=== PATIENT | male | born 1955 | race Caucasian/White ===

== ENCOUNTER 2016-07-19 16:57 | Emergency (ER) | payer BC ==
[~2016-07-19] VITALS: Ht 177.8 cm; Wt 114.4 kg
[~2016-07-19 16:57] MED LIST: PRLSR20 PO
[2016-07-19 17:00] VITALS: TEMP 36.6; Ht 177.8 cm; Wt 114.4 kg
--- NOTE | 2016-07-19 17:59 | EMERGENCY ROOM VISIT NOTE ---
History First contact with patient: 17:09 Chief Complaint: PAIN (GENERALIZED) Stated Complaint: PAIN IN BELLY BACK AND SIDES- WORK RELATED History of Present Illness The patient is a 60 year old male who presents to the Emergency Room with complaints of back and abdominal pain. The patient states he has had pain for the last 6 weeks but it has been worse over the last month or so. The patient reports a sensation of bloating in his abdomen. He states that he also has intermittent sharp pain in the bilateral flanks. The pain is worse with movement but he states the pain can come without movement. He states the pain is an 8/10 when it occurs. The patient has been constipated and saw his family doctor who put him on stool softeners. He states he has had mild improvement but still notices bloating to the point he cannot button his pants. He states the pain does not seem to be in the midline of the back but is the bilateral flanks. He denies any chest pain or trouble breathing. He denies any fevers, chills, earache, sore throat or cough. He denies any urinary symptoms. He denies any numbness, tingling or weakness in the upper or lower extremities. Review of Systems A 10 system review of systems was completed with positives and pertinent negatives listed in the HPI. Past Medical/Surgical History none Social History Smoking Status: Never Smoker Housing Status: lives with family Occupation Status: employed Current/Historical Medications Scheduled Docusate Sodium (Docusate Sodium), 1 CAP PO BID Polyethylene Glycol 3350 (Miralax), 17 GM PO BID Allergies Coded Allergies: No Known Allergies (Verified , 07/19/16) Uncoded Allergies: NKA (Allergy, Unknown, 11/25/14) No Known Allergies Physical Exam Vital Signs Date Time Temp Pulse Resp B/P Pulse Ox O2 Delivery O2 Flow Rate FiO2 07/19/16 20:35 55 16 120/81 94 Room Air 07/19/16 19:35 49 16 119/78 97 Room Air 07/19/16 17:00 36.6 54 18 133/88 98 Room Air Physical Exam VITALS: Vitals are noted on the nurse's note and reviewed by myself. Vital signs stable. The patient is afebrile. He is not tachycardic, tachypneic or hypoxic. GENERAL: This is a 60-year-old male, in no acute distress, nondiaphoretic, well- developed well-nourished. SKIN: The skin was without rashes, erythema, edema, or bruising. There is no tenting of the skin. Capillary reflex less than 2 seconds. HEAD: Normocephalic atraumatic. EARS: External auditory canals clear, tympanic membranes pearly gutierrez without erythema or effusion bilaterally. EYES: Pupils equal round and reactive to light and accommodation. Conjunctivae without injection, sclerae without icterus. Extraocular movements intact. NOSE: Patent, turbinates without inflammation or discharge. MOUTH: Mucous membranes moist. Tonsils are not enlarged. Pharynx without erythema or exudate. Uvula midline. Airway patent. Tongue does not deviate. NECK: Supple without nuchal rigidity. No JVD. HEART: Regular rate and rhythm without murmurs gallops or rubs. LUNGS: Clear to auscultation bilaterally without wheezes, rales or rhonchi. No retractions or accessory muscle use. ABDOMEN: Positive bowel sounds x 4. Soft, bloated, minimal lower abdominal tenderness, without masses or organomegaly. MUSCULOSKELETAL: No muscle atrophy, erythema, or edema noted. Full range of motion in all extremities. There is no midline spine tenderness. Normal gait. Strength 5/5 throughout. NEURO: Patient was alert and oriented to person place and time. No focal neurological deficits. Medical Decision & Procedures ER Provider Diagnostic Interpretation: ADDENDUM Addendum: There is a left/right error in the body the report. The 3 mm nonobstructing renal calculus is in the left kidney. Electronically signed by: Alen Wu M.D. 07/19/2016 7:30 PM Dictated Date/Time: 07/19/2016 7:[address] ABD/PELVIS IV CONTRAST ONLY CLINICAL HISTORY: Abdominal pain and bloating. COMPARISON STUDY: None. TECHNIQUE: Following the IV administration of 90 mL of Optiray-320, CT scan of the abdomen and pelvis was performed from the lung bases to the proximal femurs. Images are reviewed in the axial, sagittal, and coronal planes. IV contrast was administered without complication. CT DOSE: 1356.89 mGy.cm FINDINGS: Lower chest: There are mild bibasal atelectatic changes. Liver: The contrast-enhanced liver is normal in size, contour, and attenuation. There is no intrahepatic biliary ductal dilatation. The hepatic veins and portal veins are patent. Gallbladder: Unremarkable. Spleen: Normal in size and attenuation. Pancreas: Unremarkable. Adrenal glands: Unremarkable. Kidneys: No renal masses are visualized. There is no hydronephrosis. There is a nonobstructing 3 mm right renal calculus. Bowel: There are no transition zones indicate bowel obstruction. The appendix appears normal. There is colonic diverticulosis. There is no acute peridiverticular inflammatory change. Peritoneum: There is no intraperitoneal free air or abdominal ascites. There is very minimal infiltration of the central mesentery. Vasculature: The abdominal aorta is normal in course and caliber. Adenopathy: None. Pelvic viscera: The bladder, and pelvic viscera are unremarkable. Skeletal structures: No destructive osseous lesions are seen. IMPRESSION: 1. No evidence of bowel obstruction. No evidence of free air 2. Nonobstructing 3 mm left renal calculus 3. Diverticulosis. No evidence of acute diverticulitis 4. Normal appendix 5. No ascites CT LUMBAR SPINE WITH CT DOSE: CLINICAL HISTORY: Severe back pain TECHNIQUE: The patient was scanned following administration of 90 cc of Optiray 320. Sagittal and coronal reformatted imaging was performed. COMPARISON STUDY: None. FINDINGS: No acute fractures or subluxations are visualized. No destructive lesions are evident. There are mild multilevel degenerative changes. There is no significant spinal stenosis. There is a 3 mm nonobstructing left renal calculus. IMPRESSION: 1. No acute fractures or subluxations identified 2. Mild multilevel degenerative changes. No significant spinal stenosis 3. Nonobstructing 3 mm left renal calculus CT THORACIC SPINE WITH CT DOSE: CLINICAL HISTORY: Severe back pain TECHNIQUE: The patient was scanned following the administration of 90 cc of Optiray 320. Helical images were acquired in transverse plane. Sagittal and coronal reformatted images were acquired. COMPARISON STUDY: None. FINDINGS: No acute fractures or subluxations are visualized. There are mild to moderate multilevel degenerative changes. No destructive lesions are visualized. There are no pathologic paraspinal masses. There are dependent atelectatic changes present within the lungs. There are no significant pleural effusions. IMPRESSION: No acute findings. Multilevel general change. No fractures, subluxations, or destructive lesions are visualized Laboratory Results 07/19/16 18:13 Red Blood Count 4.66, Mean Corpuscular Volume 89.3, Mean Corpuscular Hemoglobin 31.5, Mean Corpuscular Hemoglobin Concent 35.3, Mean Platelet Volume 9.5, Neutrophils (%) (Auto) 59.1, Lymphocytes (%) (Auto) 28.4, Monocytes (%) (Auto) 8.7, Eosinophils (%) (Auto) 3.3, Basophils (%) (Auto) 0.3, Neutrophils # (Auto) 3.41, Lymphocytes # (Auto) 1.64, Monocytes # (Auto) 0.50, Eosinophils # (Auto) 0.19, Basophils # (Auto) 0.02 07/19/16 18:13 Test 07/19/16 18:13 White Blood Count 5.77 K/uL (4.8-10.8) Red Blood Count 4.66 M/uL (4.7-6.1) Hemoglobin 14.7 g/dL (14.0-18.0) Hematocrit 41.6 % (42-52) Mean Corpuscular Volume 89.3 fL (80-100) Mean Corpuscular Hemoglobin 31.5 pg (25-34) Mean Corpuscular Hemoglobin Concent 35.3 g/dl (32-36) Platelet Count 185 K/uL (130-400) Mean Platelet Volume 9.5 fL (7.4-10.4) Neutrophils (%) (Auto) 59.1 % Lymphocytes (%) (Auto) 28.4 % Monocytes (%) (Auto) 8.7 % Eosinophils (%) (Auto) 3.3 % Basophils (%) (Auto) 0.3 % Neutrophils # (Auto) 3.41 K/uL (1.4-6.5) Lymphocytes # (Auto) 1.64 K/uL (1.2-3.4) Monocytes # (Auto) 0.50 K/uL (0.11-0.59) Eosinophils # (Auto) 0.19 K/uL (0-0.5) Basophils # (Auto) 0.02 K/uL (0-0.2) RDW Standard Deviation 40.7 fL (36.4-46.3) RDW Coefficient of Variation 12.7 % (11.5-14.5) Immature Granulocyte % (Auto) 0.2 % Immature Granulocyte # (Auto) 0.01 K/uL (0.00-0.02) Urine Color YELLOW Urine Appearance CLEAR (CLEAR) Urine pH 6.0 (4.5-7.5) Urine Specific [place] 1.018 (1.000-1.030) Urine Protein NEG (NEG) Urine Glucose (UA) NEG (NEG) Urine Ketones NEG (NEG) Urine Occult Blood NEG (NEG) Urine Nitrite NEG (NEG) Urine Bilirubin NEG (NEG) Urine Urobilinogen NEG (NEG) Urine Leukocyte Esterase NEG (NEG) Anion Gap 9.0 mmol/L (3-11) Est Creatinine Clear Calc Drug Dose 102.0 ml/min Estimated GFR () 95.7 Estimated GFR (Non- 82.6 BUN/Creatinine Ratio 16.1 (10-20) Calcium Level 8.9 mg/dl (8.5-10.1) Total Bilirubin 0.6 mg/dl (0.2-1) Aspartate Amino Transf (AST/SGOT) 19 U/L (15-37) Alanine Aminotransferase (ALT/SGPT) 33 U/L (12-78) Alkaline Phosphatase 50 U/L (45-117) Total Protein 6.7 gm/dl (6.4-8.2) Albumin 3.7 gm/dl (3.4-5.0) Globulin 3.0 gm/dl (2.5-4.0) Albumin/Globulin Ratio 1.2 (0.9-2) Lipase 100 U/L (73-393) ED Course The patient was seen and examined. Previous visits were reviewed. The patient does not have a fever or leukocytosis. He is not anemic. He does not have any significant rectal light abnormality. Lipase is not elevated. Urinalysis is negative. Imaging was obtained as above and does not reveal any obvious abnormality The patient presents to the emergency department with nonspecific and diffuse abdominal bloating. He also has intermittent and occasional bilateral flank pain, particularly with movement and particularly with standing from a seated position. The exact etiology of his symptoms is not clear at this time. The patient may be suffering from musculoskeletal back pain. He has also had constipation and describes bloating. This could be causing the bloating. The patient does have a colonoscopy scheduled. He was encouraged to contact his family doctor on Friday for a follow-up appointment for further evaluation and management. He declined pain medication. He should return to the ER with any worsening symptoms. The case was discussed with Dr. Troncoso who agrees with the assessment and treatment plan Medical Decision DIFFERENTIAL DIAGNOSIS: Hepatitis, cholecystitis, cholangitis, biliary colic, pancreatitis, pneumonia, subdiaphragmatic abscess, appendicitis, inguinal hernia , nephrolithiasis, inflammatory bowel disease, mesenteric adenitis, peptic ulcer disease, GERD, gastritis, pancreatitis, myocardial infarction, pericarditis, ruptured aortic aneurysm, appendicitis, gastroenteritis, bowel obstruction, splenic infarct, diverticulitis, mesenteric ischemia, metabolic, peritonitis,: Lumbar strain, degenerative disc disease, spondylolisthesis, herniated disc, spinal stenosis, osteoporosis, fracture, cauda equina syndrome, neoplasm, infection, inflammatory arthritis, among others. Impression Primary Impression: Abdominal bloating Additional Impression: Back pain Departure Information Dispostion Home / Self-Care Condition GOOD Referrals Kishor Bell M.D. (PCP) Patient Instructions Abdominal Pain - [facility], Back Pain - [facility], [facility] Additional Instructions Contact your family doctor on Friday to schedule a follow-up appointment for further evaluation and management Rest and avoid athletics for the next 5-7 days Return with any fevers or worsening symptoms Problem Qualifiers
[2016-07-19] MEDS ORDERED: POLY335019 PO (18:07)
[2016-07-19] MEDS ORDERED: DOCU100C31 PO (18:07)
[2016-07-19] MEDS ORDERED: OPTIRAY 320 IV PRN (18:15)
[2016-07-19 18:24] LABS: BASO % 0.3 %; BASO ABS # 0.02 K/uL (0-0.2); COMPLETE YES; EOS % 3.3 %; HEMATOCRIT 41.6 % (42-52); IG% 0.2 %; LYMPH % 28.4 %; LYMPH ABS # 1.64 K/uL (1.2-3.4); MEAN CELL VOLUME 89.3 fL (80-100); MEAN CORPUSCULAR HEMOGLOBIN 31.5 pg (25-34); MEAN CORPUSCULAR HGB CONC 35.3 g/dl (32-36); MEAN PLATELET VOLUME 9.5 fL (7.4-10.4); MONO % 8.7 %; NEUT % 59.1 %; PLATELET COUNT 185 K/uL (130-400); RED BLOOD COUNT 4.66 M/uL (4.7-6.1); WHITE BLOOD COUNT 5.77 K/uL (4.8-10.8)
[2016-07-19 18:54] LABS: URINE APPEARANCE CLEAR (CLEAR); URINE BILIRUBIN NEG (NEG); URINE COLOR YELLOW; URINE NITRITE NEG (NEG); URINE SPECIFIC GRAVITY 1.018 (1.000-1.030); UROBILINOGEN NEG (NEG); ZZUR CULT IF INDIC CLEAN CATCH NO
[2016-07-19 18:55] LABS: BUN/CREATININE RATIO 16.1 (10-20); CALCIUM 8.9 mg/dl (8.5-10.1); POTASSIUM 3.9 mmol/L (3.5-5.1)
[2016-07-19 18:57] LABS: MANUAL MICROSCOPIC REQUIRED? NO; REVIEW REQ? NO
[2016-07-19 18:58] LABS: ALB/GLOB RATIO 1.2 (0.9-2)
--- NOTE | 2016-07-19 19:26 | DIAGNOSTIC IMAGING REPORT ---
ADDENDUM Addendum: There is a left/right error in the body the report. The 3 mm nonobstructing renal calculus is in the left kidney. Electronically signed by: Alen Wu M.D. 07/19/2016 7:30 PM Dictated Date/Time: 07/19/2016 7:[address] ABD/PELVIS IV CONTRAST ONLY CLINICAL HISTORY: Abdominal pain and bloating. COMPARISON STUDY: None. TECHNIQUE: Following the IV administration of 90 mL of Optiray-320, CT scan of the abdomen and pelvis was performed from the lung bases to the proximal femurs. Images are reviewed in the axial, sagittal, and coronal planes. IV contrast was administered without complication. CT DOSE: 1356.89 mGy.cm FINDINGS: Lower chest: There are mild bibasal atelectatic changes. Liver: The contrast-enhanced liver is normal in size, contour, and attenuation. There is no intrahepatic biliary ductal dilatation. The hepatic veins and portal veins are patent. Gallbladder: Unremarkable. Spleen: Normal in size and attenuation. Pancreas: Unremarkable. Adrenal glands: Unremarkable. Kidneys: No renal masses are visualized. There is no hydronephrosis. There is a nonobstructing 3 mm right renal calculus. Bowel: There are no transition zones indicate bowel obstruction. The appendix appears normal. There is colonic diverticulosis. There is no acute peridiverticular inflammatory change. Peritoneum: There is no intraperitoneal free air or abdominal ascites. There is very minimal infiltration of the central mesentery. Vasculature: The abdominal aorta is normal in course and caliber. Adenopathy: None. Pelvic viscera: The bladder, and pelvic viscera are unremarkable. Skeletal structures: No destructive osseous lesions are seen. IMPRESSION: 1. No evidence of bowel obstruction. No evidence of free air 2. Nonobstructing 3 mm left renal calculus 3. Diverticulosis. No evidence of acute diverticulitis 4. Normal appendix 5. No ascites Electronically signed by: Alen Wu M.D. 07/19/2016 7:24 PM Dictated Date/Time: 07/19/2016 7:20 PM
--- NOTE | 2016-07-19 19:30 | DIAGNOSTIC IMAGING REPORT ---
CT LUMBAR SPINE WITH CT DOSE: CLINICAL HISTORY: Severe back pain TECHNIQUE: The patient was scanned following administration of 90 cc of Optiray 320. Sagittal and coronal reformatted imaging was performed. COMPARISON STUDY: None. FINDINGS: No acute fractures or subluxations are visualized. No destructive lesions are evident. There are mild multilevel degenerative changes. There is no significant spinal stenosis. There is a 3 mm nonobstructing left renal calculus. IMPRESSION: 1. No acute fractures or subluxations identified 2. Mild multilevel degenerative changes. No significant spinal stenosis 3. Nonobstructing 3 mm left renal calculus Electronically signed by: Alen Wu M.D. 07/19/2016 7:28 PM Dictated Date/Time: 07/19/2016 7:25 PM
--- NOTE | 2016-07-19 19:35 | DIAGNOSTIC IMAGING REPORT ---
CT THORACIC SPINE WITH CT DOSE: CLINICAL HISTORY: Severe back pain TECHNIQUE: The patient was scanned following the administration of 90 cc of Optiray 320. Helical images were acquired in transverse plane. Sagittal and coronal reformatted images were acquired. COMPARISON STUDY: None. FINDINGS: No acute fractures or subluxations are visualized. There are mild to moderate multilevel degenerative changes. No destructive lesions are visualized. There are no pathologic paraspinal masses. There are dependent atelectatic changes present within the lungs. There are no significant pleural effusions. IMPRESSION: No acute findings. Multilevel general change. No fractures, subluxations, or destructive lesions are visualized Electronically signed by: Alen Wu M.D. 07/19/2016 7:33 PM Dictated Date/Time: 07/19/2016 7:30 PM
[2016-07-19 20:35] VITALS: BP 120/81; PULSE 55; O2SAT 94
== END 2016-07-19 20:36 | disposition home or self-care (01) ==
LOC: C.EDB 16:59 → C.EDC 20:36
DX: R14.0 Abdominal distension (gaseous) (principal); N20.0 Calculus of kidney; K57.90 Diverticulosis of intestine, part unspecified, without perforation or abscess without bleeding

== ENCOUNTER → 2016-11-04 | Outpatient (CLI) | payer BC ==
[~2016-11-04] MED LIST changes: +DOCU100C31 PO; +ESCI1TAB6 PO; +POLY335019 PO; -PRLSR20 PO
== END | disposition home or self-care (01) ==
LOC: C.RDSM 08:55
PROVIDERS: ATTEND Physical Medicine & Rehabilitation Sports Medicine
DX: M25.511 Pain in right shoulder (principal)

== ENCOUNTER 2017-02-08 14:30 | Emergency (ER) | payer BC ==
[~2017-02-08] VITALS: Ht 175.3 cm; Wt 115.0 kg
[~2017-02-08 14:30] MED LIST changes: -ESCI1TAB6 PO
[2017-02-08 14:57] VITALS: TEMP 36.7; Ht 175.3 cm; Wt 115.0 kg
--- NOTE | 2017-02-08 15:07 | EMERGENCY ROOM VISIT NOTE ---
History Report prepared by Marvin: Charu Farr Under the Supervision of: Dr. Danna Chau D.O. First contact with patient: 14:39 Stated Complaint: DIZZY/NEAR SYNCOPE History of Present Illness The patient is a 61 year old male who presents to the Emergency Room with complaints of a episode of a near syncope incident that occurred just prior to arrival. The patient states that he was driving when he started to get numbness and tingling across his face from one side to the other, as well as palpitations during the incident. The patient states that he felt like "he couldn't function" and that it was like "having a heart attack and like I was going to ". The patient denies ever feeling anything like this before. States was awake the whole time and could hear his daughter talking to him. He states his daughter told him he didn't answer her right aware. He notes that he has fallen three times in the last month. He also notes that he has been having neck problems and went to a chiropractor for it. The patient denies chest pain, nausea, vomiting, or recent illness. He also notes that he is recently retired and has felt less stress since retiring but has felt more fatigued recently. He also takes Lexapro for anxiety. The patient say he "feels fuzzy" right now although improved compared to original symptoms. Denies any recent trauma, no travel, no med changes, no recent illness. Source of History: patient Onset: just prior to arrival Timing: other (episode) Associated Symptoms: + fatigue, + numbness (on face), No chest pain, No nausea, No vomiting Note: Pt had tingling across face. Pt denies and recent illness. Review of Systems See HPI for pertinent positives & negatives. A total of 10 systems reviewed and were otherwise negative. Past Medical & Surgical Medical Problems: (1) Anxiety (2) Neck problem Family History no pertinent family history stated. Social History Smoking Status: Never Smoker Housing Status: lives with family Occupation Status: employed, retired (recently) Current/Historical Medications Scheduled Escitalopram Oxalate (Lexapro), Unknown Dose PO DAILY Allergies Coded Allergies: No Known Allergies (Verified , 02/08/17) Physical Exam Vital Signs Date Time Temp Pulse Resp B/P (MAP) Pulse Ox O2 Delivery O2 Flow Rate FiO2 02/08/17 19:44 53 18 100/69 98 02/08/17 17:59 46 18 119/81 97 Room Air 02/08/17 16:31 124/93 02/08/17 16:30 45 15 95 02/08/17 16:01 102/56 02/08/17 16:00 46 22 94 02/08/17 15:42 105/69 02/08/17 15:03 99/49 02/08/17 15:00 55 28 95 02/08/17 14:57 36.7 56 18 148/90 96 Room Air 02/08/17 14:42 122/86 02/08/17 14:37 56 02/08/17 14:33 148/90 Physical Exam GENERAL: alert, well appearing, well nourished, no distress, non-toxic EYE EXAM: normal conjunctiva, PERRL and EOM's grossly intact OROPHARYNX: no exudate, no erythema, lips, buccal mucosa, and tongue normal and mucous membranes are moist NECK: supple, no nuchal rigidity, no adenopathy, non-tender LUNGS: Clear to auscultation. Normal chest wall mechanics, no w/r/r HEART: no murmurs, S1 normal and S2 normal, no jvd ABDOMEN: abdomen soft, non-tender, normo-active bowel sounds, no masses, no rebound or guarding. BACK: Back is symmetrical on inspection and there is no deformity, no midline tenderness, no CVA tenderness. SKIN: no rashes and no bruising UPPER EXTREMITIES: upper extremities are grossly normal. LOWER EXTREMITIES: No pitting edema. NEURO EXAM: Normal sensorium, cranial nerves II-XII grossly intact, normal speech, no facial droop, no gross weakness of arms, no gross weakness of legs. No drift. Finger to nose intact. Gross sensation intact. NIHSS 0 Medical Decision & Procedures ER Provider Diagnostic Interpretation: Radiology results have been interpreted by the radiologist and reviewed by me. CHEST ONE VIEW PORTABLE FINDINGS: Lung volumes are normal. No pneumothorax or pleural effusion is present. Pulmonary vascularity is normal. Mild cardiomegaly is unchanged. There is no consolidation to suggest pneumonia. IMPRESSION: No acute cardiopulmonary findings. Electronically signed by: Elías Pederson M.D. CT OF THE HEAD WITHOUT CONTRAST CT DOSE: 537.48 mGy.cm TECHNIQUE: Helical axial images of the head were obtained without IV contrast. Automated exposure control was utilized for the study. A dose lowering technique was utilized adhering to the principles of ALARA. FINDINGS: No acute intracranial hemorrhage, midline shift or mass effect is present. Ventricular system is normal. Basilar cisterns are patent. There are no extra-axial collections. Ann-white differentiation is maintained. There are no findings to suggest acute dural sinus thrombosis or acute territorial infarct. There are no significant calvarial abnormalities. Visualized portions of the sinuses and mastoid air cells are clear. IMPRESSION: No acute intracranial findings. Electronically signed by: Elías Pederson M.D. MRI OF THE BRAIN WITHOUT AND WITH IV CONTRAST CLINICAL HISTORY: Dizziness. Near-syncope. Possible transient ischemic attack. COMPARISON STUDY: MRI of the brain November 25, [address] performed earlier today. TECHNIQUE: Utilizing a 1.5 Lamar magnet and dedicated coil, multiplanar, multiecho imaging of the brain was performed pre and postcontrast administration. IV administration of 11 mL of Gadavist contrast was uneventful. FINDINGS: There are no areas of restricted diffusion. No acute intracranial hemorrhage, midline shift or mass effect is present. Ventricular system is normal. Basilar cisterns are patent. There are no extra-axial collections. Flow-voids for the major intracranial vessels are present. There is no intracranial mass or pathologic enhancement although the postcontrast images are mildly compromised by motion artifact. A few punctate foci of signal abnormality suggest minimal small vessel disease. There is minimal atrophy. Calvarial signal is maintained. IMPRESSION: 1. No acute intracranial findings. 2. No intracranial masses or pathologic enhancement. Electronically signed by: Elías Pederson M.D. 02/08/2017 7:25 PM Dictated Date/Time: 02/08/2017 7:21 PM Laboratory Results 02/08/17 14:43 Red Blood Count 4.48, Mean Corpuscular Volume 91.3, Mean Corpuscular Hemoglobin 31.9, Mean Corpuscular Hemoglobin Concent 35.0, Mean Platelet Volume 9.9, Neutrophils (%) (Auto) 68.4, Lymphocytes (%) (Auto) 23.4, Monocytes (%) (Auto) 6.1, Eosinophils (%) (Auto) 1.5, Basophils (%) (Auto) 0.4, Neutrophils # (Auto) 3.60, Lymphocytes # (Auto) 1.23, Monocytes # (Auto) 0.32, Eosinophils # (Auto) 0.08, Basophils # (Auto) 0.02 02/08/17 14:43 Test 02/08/17 14:43 02/08/17 15:35 02/08/17 17:09 White Blood Count 5.26 K/uL (4.8-10.8) Red Blood Count 4.48 M/uL (4.7-6.1) Hemoglobin 14.3 g/dL (14.0-18.0) Hematocrit 40.9 % (42-52) Mean Corpuscular Volume 91.3 fL (80-100) Mean Corpuscular Hemoglobin 31.9 pg (25-34) Mean Corpuscular Hemoglobin Concent 35.0 g/dl (32-36) Platelet Count 188 K/uL (130-400) Mean Platelet Volume 9.9 fL (7.4-10.4) Neutrophils (%) (Auto) 68.4 % Lymphocytes (%) (Auto) 23.4 % Monocytes (%) (Auto) 6.1 % Eosinophils (%) (Auto) 1.5 % Basophils (%) (Auto) 0.4 % Neutrophils # (Auto) 3.60 K/uL (1.4-6.5) Lymphocytes # (Auto) 1.23 K/uL (1.2-3.4) Monocytes # (Auto) 0.32 K/uL (0.11-0.59) Eosinophils # (Auto) 0.08 K/uL (0-0.5) Basophils # (Auto) 0.02 K/uL (0-0.2) RDW Standard Deviation 41.8 fL (36.4-46.3) RDW Coefficient of Variation 12.4 % (11.5-14.5) Immature Granulocyte % (Auto) 0.2 % Immature Granulocyte # (Auto) 0.01 K/uL (0.00-0.02) Prothrombin Time 10.8 SECONDS (9.0-12.0) Prothromb Time International Ratio 1.0 (0.9-1.1) Anion Gap 7.0 mmol/L (3-11) Est Creatinine Clear Calc Drug Dose 90.5 ml/min Estimated GFR () 84.7 Estimated GFR (Non- 73.1 BUN/Creatinine Ratio 11.5 (10-20) Calcium Level 8.6 mg/dl (8.5-10.1) Magnesium Level 2.0 mg/dl (1.8-2.4) Total Bilirubin 0.8 mg/dl (0.2-1) Aspartate Amino Transf (AST/SGOT) 25 U/L (15-37) Alanine Aminotransferase (ALT/SGPT) 29 U/L (12-78) Alkaline Phosphatase 47 U/L (45-117) Total Protein 6.5 gm/dl (6.4-8.2) Albumin 3.6 gm/dl (3.4-5.0) Globulin 2.9 gm/dl (2.5-4.0) Albumin/Globulin Ratio 1.2 (0.9-2) Thyroid Stimulating Hormone (TSH) 1.890 uIu/ml (0.300-4.500) Lyme Disease IgG Antibody NEG (NEG) Lyme Disease IgM Antibody NEG (NEG) Urine Color YELLOW Urine Appearance CLEAR (CLEAR) Urine pH 7.0 (4.5-7.5) Urine Specific [place] 1.006 (1.000-1.030) Urine Protein NEG (NEG) Urine Glucose (UA) NEG (NEG) Urine Ketones NEG (NEG) Urine Occult Blood NEG (NEG) Urine Nitrite NEG (NEG) Urine Bilirubin NEG (NEG) Urine Urobilinogen NEG (NEG) Urine Leukocyte Esterase NEG (NEG) Troponin I < 0.015 ng/ml (0-0.045) Laboratory results per my review. ECG Indication: syncope (near ) Rate (beats per minute): 53 Rhythm: sinus bradycardia Findings: T-wave inversion (on Lead III), no acute ischemic change, no ectopy, other (Normal axis, normal intervals, low voltage) ED Course 1458: The patient was evaluated in room B6. A complete history and physical exam was performed. 1641: I reevaluated the patient and updated him on his results. The patient is resting comfortably. 1914: Updated on MRI results. Pt feels normal at this time, no complaints. VS have remained stable. Discussed close f/u with PCP, sx to watch/return for, he verbalized understanding and was agreeable with plan. Medical Decision DDX: cva/tia, dysrhythmia, acs, anxiety, electrolyte abnormality, dehydration, dissection, occult infection HEART score: 1 Unclear etiology of events today. Doubt CVA/TIA given b/l sx. no evidence of cardiac etiology patient low risk for ACS and troponins negative 2. CT negative, however given atypical episode and no clear etiology patient sent for MRI also. This was also read as negative. Vital signs stable throughout. Discussed with patient close follow-up with family doctor. Doubt occult infectious etiology, no evidence of joint abnormality. Would be atypical reaction for patient's anxiety medication. Discussed symptoms to watch and return for, he verbalized understanding was agreeable with plan. Doubt vascular etiology, no evidence of bacteremia/sepsis. Medication Reconcilliation Current Medication List: was personally reviewed by me Blood Pressure Screening Patient's blood pressure: Normal blood pressure Blood pressure disposition: Did not require urgent referral Impression Primary Impression: Lightheadedness Scribe Attestation The scribe's documentation has been prepared under my direction and personally reviewed by me in its entirety. I confirm that the note above accurately reflects all work, treatment, procedures, and medical decision making performed by me. Departure Information Dispostion Home / Self-Care Referrals Kishor Bell M.D. (PCP) Additional Instructions Please call your family doctor Friday morning to discuss with them the events of today, your symptoms, and high or feeling. Please be seen by them and follow -up next week as precaution. Please avoid any strenuous activity or heavy lifting until you're seen and evaluated by her family doctor. Please drink plenty of fluids to stay well-hydrated and avoid any significant only stressful situations. If you develop any recurrent episodes of dizziness or lightheadedness, develop headaches, vision changes, chest pain, palpitations, fevers, vomiting or you've any other new or concerning symptoms, please return the emergency room immediately.
[2017-02-08] MEDS ORDERED: ESCI1TAB6 PO (15:10)
[2017-02-08 15:30] LABS: BASO % 0.4 %; BASO ABS # 0.02 K/uL (0-0.2); COMPLETE YES; EOS % 1.5 %; HEMATOCRIT 40.9 % (42-52); IG% 0.2 %; LYMPH % 23.4 %; LYMPH ABS # 1.23 K/uL (1.2-3.4); MEAN CELL VOLUME 91.3 fL (80-100); MEAN CORPUSCULAR HEMOGLOBIN 31.9 pg (25-34); MEAN PLATELET VOLUME 9.9 fL (7.4-10.4); MONO % 6.1 %; NEUT % 68.4 %; PLATELET COUNT 188 K/uL (130-400); RED BLOOD COUNT 4.48 M/uL (4.7-6.1); WHITE BLOOD COUNT 5.26 K/uL (4.8-10.8)
--- NOTE | 2017-02-08 15:36 | DIAGNOSTIC IMAGING REPORT ---
CHEST ONE VIEW PORTABLE CLINICAL HISTORY: Dizzy. Tingling. COMPARISON STUDY: Chest radiograph September 29, 2014. FINDINGS: Lung volumes are normal. No pneumothorax or pleural effusion is present. Pulmonary vascularity is normal. Mild cardiomegaly is unchanged. There is no consolidation to suggest pneumonia. IMPRESSION: No acute cardiopulmonary findings. Electronically signed by: Elías Pederson M.D. 02/08/2017 3:34 PM Dictated Date/Time: 02/08/2017 3:34 PM
[2017-02-08 15:37] LABS: ALT/SGPT 29 U/L (12-78); BLOOD UREA NITROGEN 13 mg/dl (7-18); BUN/CREATININE RATIO 11.5 (10-20); CALCIUM 8.6 mg/dl (8.5-10.1); CARBON DIOXIDE 25 mmol/L (21-32); CHLORIDE 110 mmol/L (98-107); GLUCOSE 79 mg/dl (70-99); SODIUM 142 mmol/L (136-145)
--- NOTE | 2017-02-08 15:39 | DIAGNOSTIC IMAGING REPORT ---
CT OF THE HEAD WITHOUT CONTRAST CLINICAL HISTORY: Dizzy. Facial tingling. COMPARISON STUDY: MRI the brain November 25, 2014. CT DOSE: 537.48 mGy.cm TECHNIQUE: Helical axial images of the head were obtained without IV contrast. Automated exposure control was utilized for the study. A dose lowering technique was utilized adhering to the principles of ALARA. FINDINGS: No acute intracranial hemorrhage, midline shift or mass effect is present. Ventricular system is normal. Basilar cisterns are patent. There are no extra-axial collections. Ann-white differentiation is maintained. There are no findings to suggest acute dural sinus thrombosis or acute territorial infarct. There are no significant calvarial abnormalities. Visualized portions of the sinuses and mastoid air cells are clear. IMPRESSION: No acute intracranial findings. Electronically signed by: Elías Pederson M.D. 02/08/2017 3:38 PM Dictated Date/Time: 02/08/2017 3:36 PM
[2017-02-08 15:40] LABS: PROTHROMBIN TIME (PATIENT) 10.8 SECONDS (9.0-12.0)
[2017-02-08 15:48] LABS: ALB/GLOB RATIO 1.2 (0.9-2); ALKALINE PHOSPHATASE 47 U/L (45-117); AST/SGOT 25 U/L (15-37)
[2017-02-08 16:03] LABS: URINE APPEARANCE CLEAR (CLEAR); URINE BILIRUBIN NEG (NEG); URINE COLOR YELLOW; URINE NITRITE NEG (NEG); URINE SPECIFIC GRAVITY 1.006 (1.000-1.030); UROBILINOGEN NEG (NEG); ZZUR CULT IF INDIC CLEAN CATCH NO
[2017-02-08 16:14] LABS: MANUAL MICROSCOPIC REQUIRED? NO; REVIEW REQ? NO
[2017-02-08 16:29] LABS: LYME DISEASE AB IGG NEG (NEG); LYME DISEASE AB IGM NEG (NEG)
[2017-02-08] MEDS ORDERED: LORAZEPAM 2 MG/ML 1 ML VIAL IV STA (17:53)
[2017-02-08] MEDS ORDERED: LORAZEPAM 2 MG/ML 1 ML VIAL ONE (17:57)
[2017-02-08] MEDS ORDERED: GADAVIST IV PRN (19:00)
--- NOTE | 2017-02-08 19:27 | DIAGNOSTIC IMAGING REPORT ---
MRI OF THE BRAIN WITHOUT AND WITH IV CONTRAST CLINICAL HISTORY: Dizziness. Near-syncope. Possible transient ischemic attack. COMPARISON STUDY: MRI of the brain November 25, [address] performed earlier today. TECHNIQUE: Utilizing a 1.5 Lamar magnet and dedicated coil, multiplanar, multiecho imaging of the brain was performed pre and postcontrast administration. IV administration of 11 mL of Gadavist contrast was uneventful. FINDINGS: There are no areas of restricted diffusion. No acute intracranial hemorrhage, midline shift or mass effect is present. Ventricular system is normal. Basilar cisterns are patent. There are no extra-axial collections. Flow-voids for the major intracranial vessels are present. There is no intracranial mass or pathologic enhancement although the postcontrast images are mildly compromised by motion artifact. A few punctate foci of signal abnormality suggest minimal small vessel disease. There is minimal atrophy. Calvarial signal is maintained. IMPRESSION: 1. No acute intracranial findings. 2. No intracranial masses or pathologic enhancement. Electronically signed by: Elías Pederson M.D. 02/08/2017 7:25 PM Dictated Date/Time: 02/08/2017 7:21 PM
[2017-02-08 19:44] VITALS: BP 100/69; PULSE 53; O2SAT 98
== END 2017-02-08 19:46 | disposition home or self-care (01) ==
LOC: EDBD 14:30 → C.EDB 14:31
DX: R42 Dizziness and giddiness (principal); F41.9 Anxiety disorder, unspecified

== ENCOUNTER → 2017-10-07 | Outpatient (CLI) | payer OTHER ==
[~2017-10-07] MED LIST changes: -DOCU100C31 PO; +ESCI1TAB6 PO; -POLY335019 PO
[2017-10-07 12:35] LABS: HEMATOCRIT 43.1 % (42-52); HEMOGLOBIN 14.7 g/dL (14.0-18.0); MEAN CELL VOLUME 91.1 fL (80-100); MEAN CORPUSCULAR HEMOGLOBIN 31.1 pg (25-34); MEAN CORPUSCULAR HGB CONC 34.1 g/dl (32-36); MEAN PLATELET VOLUME 10.6 fL (7.4-10.4); PLATELET COUNT 193 K/uL (130-400); RED CELL DISTRIBUTION WIDTH CV 12.3 % (11.5-14.5); RED CELL DISTRIBUTION WIDTH SD 41.4 fL (36.4-46.3); WHITE BLOOD COUNT 5.24 K/uL (4.8-10.8)
[2017-10-07 12:57] LABS: HEMOGLOBIN A1C 5.4 % (4.5-5.6)
[2017-10-07 13:06] LABS: ALBUMIN 3.6 gm/dl (3.4-5.0); ALT/SGPT 29 U/L (12-78); AST/SGOT 21 U/L (15-37); BLOOD UREA NITROGEN 20 mg/dl (7-18); CALCIUM 8.6 mg/dl (8.5-10.1); CARBON DIOXIDE 24 mmol/L (21-32); CREATININE 1.21 mg/dl (0.60-1.40); GLUCOSE 101 mg/dl (70-99); POTASSIUM 4.4 mmol/L (3.5-5.1); SODIUM 139 mmol/L (136-145)
[2017-10-07 13:11] LABS: ALKALINE PHOSPHATASE 51 U/L (45-117); CHOLESTEROL 148 mg/dl (0-200); LDL CHOLESTEROL CALCULATED 97 mg/dl; TOTAL PROTEIN 6.7 gm/dl (6.4-8.2)
== END | disposition home or self-care (01) ==
LOC: C.LABBFT 08:31
PROVIDERS: ATTEND Nurse Practitioner
DX: Z12.5 Encounter for screening for malignant neoplasm of prostate (principal); R73.01 Impaired fasting glucose

== ENCOUNTER → 2017-10-13 | Outpatient (CLI) | payer OTHER | END | disposition home or self-care (01) | LOC: C.LABBFT 14:34 | PROVIDERS: ATTEND Internal Medicine | DX: R25.1 Tremor, unspecified (principal) ==

== ENCOUNTER → 2017-10-21 | Outpatient (CLI) | payer OTHER ==
--- NOTE | 2017-10-21 18:25 | DIAGNOSTIC IMAGING REPORT ---
MRI LEFT SHOULDER NO CONTRAST CLINICAL HISTORY: Increasing left shoulder pain with diminished range of motion COMPARISON STUDY: No previous studies for comparison. FINDINGS: Imaging was performed in the sagittal, axial, and coronal planes. There are no areas of marrow edema to indicate occult fracture or bone bruise. Degenerative changes are present within the AC joint. The bicipital tendon appears normal. There is no evidence of rotator cuff tear. There is distal supraspinatus tendinopathy. There is mild irregularity anterior glenoid labrum. IMPRESSION: 1. Degenerative changes within the AC joint 2. Distal supraspinatus tendinopathy. No evidence of full-thickness rotator cuff tear 3. Irregularity of the anterior glenoid labrum 4. Arthritic changes within the glenohumeral joint. Electronically signed by: Alen Wu M.D. 10/21/2017 6:24 PM Dictated Date/Time: 10/21/2017 6:18 PM
== END | disposition home or self-care (01) ==
LOC: C.MRI 17:29
PROVIDERS: ATTEND Internal Medicine
DX: M75.92 Shoulder lesion, unspecified, left shoulder (principal); M24.812 Other specific joint derangements of left shoulder, not elsewhere classified; M25.511 Pain in right shoulder

== ENCOUNTER → 2017-11-18 | Outpatient (CLI) | payer OTHER | END | disposition home or self-care (01) | LOC: C.LABBFT 13:59 | PROVIDERS: ATTEND Physician Assistant Medical | DX: M53.82 Other specified dorsopathies, cervical region (principal) ==